=== PATIENT | male | born 1945 | race Caucasian/White ===

== ENCOUNTER → 2016-07-23 | Outpatient (CLI) | payer OTHER, MEDICARE ==
[~2016-07-23] MED LIST: AMOX500T PO; ASPI81TA28 PO; OMEG10007 PO; PRAV80TA2 PO; PRLSR20 PO; PRVC/40 PO
[2016-07-23 12:54] LABS: ALT/SGPT 22 U/L (12-78); AST/SGOT 19 U/L (15-37); BLOOD UREA NITROGEN 21 mg/dl (7-18); BUN/CREATININE RATIO 13.3 (10-20); CALCIUM 9.4 mg/dl (8.5-10.1); CARBON DIOXIDE 26 mmol/L (21-32); CHLORIDE 101 mmol/L (98-107); CHOLESTEROL 212 mg/dl (0-200); GLUCOSE 111 mg/dl (70-99); POTASSIUM 4.1 mmol/L (3.5-5.1); SODIUM 136 mmol/L (136-145); TRIGLYCERIDES 158 mg/dl (0-150); VERY LOW DENSITY LIPOPROT CALC 32 mg/dl
[2016-07-23 12:55] LABS: ESTIMATED AVERAGE GLUCOSE 117 mg/dl; HA1C FLAG Normal (Normal)
[2016-07-23 13:00] LABS: ALKALINE PHOSPHATASE 70 U/L (45-117); CHOLESTEROL/HDL RATIO 3.9; HDL CHOLESTEROL 54 mg/dl
== END | disposition home or self-care (01) ==
LOC: C.LABSPEC 12:22
PROVIDERS: ATTEND Internal Medicine
DX: E78.5 Hyperlipidemia, unspecified (principal); R73.9 Hyperglycemia, unspecified

== ENCOUNTER 2016-08-27 14:58 | Inpatient (IN) | payer OTHER, MEDICARE ==
[~2016-08-27] VITALS: Ht 170.2 cm; Wt 67.7 kg
[~2016-08-27 14:58] MED LIST changes: -AMOX500T PO; -PRLSR20 PO; -PRVC/40 PO
[2016-08-27] MEDS ORDERED: PRVC/40 PO (15:16)
--- NOTE | 2016-08-27 15:17 | EMERGENCY ROOM VISIT NOTE ---
History First contact with patient: 15:06 Chief Complaint: RESPIRATORY PROBLEMS Stated Complaint: PT EVAL FOR ASPIRATION Nursing Triage Summary: pt to the ED via EMS from [facility] where pt had colonscopy today and started to cough so hard afterward that he vomitted and they were concerned for aspiration. pt has no complaints of pain no resp distress History of Present Illness The patient is a 71 year old male who presents to the Emergency Room via private vehicle with complaints of "eval for aspiration". The patient states that he had a colonoscopy this afternoon at 1 PM, performed by Dr. Ahumada. He states that before the colonoscopy he felt that he may have had a fever, but his lungs were clear. Apparently during the procedure he began coughing which persisted. As he was coming out of anesthesia, he vomited when he turned to the left side. He was sent here via ambulance today over concern for potential aspiration. He feels as though he has some indigestion at this time. He states that he remembers vomiting but not coughing. He denies any pain, chest pain, shortness of breath, chills, trouble swallowing. His oxygenation dropped to 88% according to family. Review of Systems A complete 10-point Review of Systems was discussed with the patient, with pertinent positives and negatives listed in the History of Present Illness. All remaining Review of Systems questions can be considered negative unless otherwise specified. Past Medical/Surgical History Medical Problems: (1) ASPIRATION. (2) Hypercholesteremia Family History MATERNAL: Dementia, hypothyroidism. PATERNAL: Myocardial Infarction. Social History Smoking Status: Former Smoker Marital Status: Housing Status: lives with significant other Occupation Status: retired Social History: Patient is . He has smoked for years, and stopped in 2008. There is no alcohol or drug use. Current/Historical Medications Scheduled Aspirin (Aspirin Ec), 81 MG PO DAILY Fish Oil (Elverta-3), 1 CAP PO DAILY Pravastatin Sod (Pravastatin Sodium), 40 MG PO DAILY Allergies Coded Allergies: Adhesives (Unverified Allergy, Unknown, BLISTERS, 08/27/16) TAPE Morphine (Verified Adverse Reaction, Unknown, NAUSEA, 08/27/16) Physical Exam Vital Signs Date Time Temp Pulse Resp B/P Pulse Ox O2 Delivery O2 Flow Rate FiO2 08/27/16 18:08 96 Nasal Cannula 08/27/16 17:58 39.5 114 22 154/76 88 Room Air 08/27/16 17:58 117 25 89 08/27/16 17:57 154/76 08/27/16 17:28 115 26 91 08/27/16 16:58 109 29 92 08/27/16 16:47 112 26 134/77 92 Nasal Cannula 4.0 08/27/16 16:47 134/77 08/27/16 16:28 109 29 93 08/27/16 16:12 113 08/27/16 15:58 112 25 94 08/27/16 15:29 Nasal Cannula 2.0 08/27/16 15:09 37.1 116 20 176/98 94 Room Air Physical Exam VITAL SIGNS - Vital signs and nursing notes were reviewed. GENERAL -71-year-old male appearing his stated age who is in no acute distress. Communicates well with provider and answers questions appropriately. SKIN - Without rashes. No petechial rashes. HEAD - NC/AT. EYES - Sclera anicteric. Palpebral conjunctiva pink and moist with no injection noted. EARS - No deformities of external structures noted on gross examination bilaterally. NOSE - Midline and without cyanosis. No epistaxis or purulent drainage noted. Septum midline without deviation or septal hematoma noted. MOUTH/OROPHARYNX - Without perioral cyanosis. Buccal mucosa pink and moist and without leukoplakia. Tongue midline with equal elevation of palate bilaterally. No tonsillar hypertrophy, erythema, or exudates noted. Fair dentition noted. NECK - Neck with FROM. Supple to palpation. No lymphadenopathy noted. No nuchal rigidity. LUNGS - Chest wall symmetric without accessory muscle use, intercostals retractions, or central cyanosis. Slightly diminished breath sounds in the left base. There is mild rhonchi noted. CARDIAC - RRR with S1/S2. No murmur, rubs, or gallops appreciated. Medical Decision & Procedures ER Provider Diagnostic Interpretation: CHEST 2 VIEWS ROUTINE CLINICAL HISTORY: Recent colonoscopy. Cough, emesis. Evaluate for aspiration. COMPARISON STUDY: Chest radiograph April 30, 2014. FINDINGS: Lungs are hyperinflated. There is no pneumothorax or pleural effusion. Minimal left basilar opacity favors atelectasis or epicardial fat pad. There is no evidence of pulmonary edema. IMPRESSION: 1. Mild left basilar opacity which favors atelectasis or epicardial fat pad. No convincing evidence for pneumonia. 2. Emphysema. Electronically signed by: Stan Barbour M.D. 08/27/2016 4:06 PM Dictated Date/Time: 08/27/2016 4:03 PM Laboratory Results 08/27/16 16:19 Red Blood Count 5.08, Mean Corpuscular Volume 90.6, Mean Corpuscular Hemoglobin 31.3, Mean Corpuscular Hemoglobin Concent 34.6, Mean Platelet Volume 11.4, Neutrophils (%) (Auto) 84.3, Lymphocytes (%) (Auto) 9.1, Monocytes (%) (Auto) 5.9, Eosinophils (%) (Auto) 0.3, Basophils (%) (Auto) 0.1, Neutrophils # (Auto) 11.89, Lymphocytes # (Auto) 1.28, Monocytes # (Auto) 0.83, Eosinophils # (Auto) 0.04, Basophils # (Auto) 0.02 08/27/16 16:19 Test 08/27/16 16:19 08/27/16 16:30 08/27/16 18:10 White Blood Count 14.10 K/uL (4.8-10.8) Red Blood Count 5.08 M/uL (4.7-6.1) Hemoglobin 15.9 g/dL (14.0-18.0) Hematocrit 46.0 % (42-52) Mean Corpuscular Volume 90.6 fL (80-100) Mean Corpuscular Hemoglobin 31.3 pg (25-34) Mean Corpuscular Hemoglobin Concent 34.6 g/dl (32-36) Platelet Count 197 K/uL (130-400) Mean Platelet Volume 11.4 fL (7.4-10.4) Neutrophils (%) (Auto) 84.3 % Lymphocytes (%) (Auto) 9.1 % Monocytes (%) (Auto) 5.9 % Eosinophils (%) (Auto) 0.3 % Basophils (%) (Auto) 0.1 % Neutrophils # (Auto) 11.89 K/uL (1.4-6.5) Lymphocytes # (Auto) 1.28 K/uL (1.2-3.4) Monocytes # (Auto) 0.83 K/uL (0.11-0.59) Eosinophils # (Auto) 0.04 K/uL (0-0.5) Basophils # (Auto) 0.02 K/uL (0-0.2) RDW Standard Deviation 41.9 fL (36.4-46.3) RDW Coefficient of Variation 12.6 % (11.5-14.5) Immature Granulocyte % (Auto) 0.3 % Immature Granulocyte # (Auto) 0.04 K/uL (0.00-0.02) Anion Gap 10.0 mmol/L (3-11) Est Creatinine Clear Calc Drug Dose 39.6 ml/min Estimated GFR () 49.5 Estimated GFR (Non- 42.7 BUN/Creatinine Ratio 11.4 (10-20) Calcium Level 8.2 mg/dl (8.5-10.1) Magnesium Level 2.2 mg/dl (1.8-2.4) Total Bilirubin 0.6 mg/dl (0.2-1) Aspartate Amino Transf (AST/SGOT) 19 U/L (15-37) Alanine Aminotransferase (ALT/SGPT) 23 U/L (12-78) Alkaline Phosphatase 59 U/L (45-117) Troponin I < 0.015 ng/ml (0-0.045) Total Protein 7.1 gm/dl (6.4-8.2) Albumin 3.8 gm/dl (3.4-5.0) Globulin 3.3 gm/dl (2.5-4.0) Albumin/Globulin Ratio 1.2 (0.9-2) Bedside Lactic Acid Venous 2.59 mmol/L (0.90-1.70) Influenza Type A Antigen Neg for Influ A (NEG) Influenza Type B Antigen Neg for Influ B (NEG) Medications Administered Medications (Trade) Dose Ordered Sig/Luba Route Start Time Stop Time Status Last Admin Dose Admin Ondansetron HCl 4 mg 4 mg NOW STAT IV 08/27/16 15:33 08/27/16 15:34 DC 08/27/16 15:55 4 MG Sodium Chloride 1,000 ml @ 999 mls/hr Q1H1M STAT IV 08/27/16 15:33 08/27/16 16:33 DC 08/27/16 15:55 999 MLS/HR Ampicillin Sodium/ Sulbactam Sodium/ Sodium Chloride (Unasyn Inj/Nss 100ml) 104 ml @ 208 mls/hr NOW ONCE IV 08/27/16 17:45 08/27/16 18:14 DC 08/27/16 17:57 208 MLS/HR Lidocaine HCl (Viscous Lidocaine 2% Soln) 10 ml NOW STAT PO 08/27/16 17:36 08/27/16 17:41 DC 08/27/16 17:56 10 ML Al Hydroxide/Mg Hydroxide 30 ml 30 ml NOW STAT PO 08/27/16 17:36 08/27/16 17:41 DC 08/27/16 17:55 30 ML Sodium Chloride (Nss 1000ml) 1,000 ml @ 100 mls/hr Q10H IV 08/27/16 18:15 09/26/16 18:14 08/27/16 19:45 100 MLS/HR Acetaminophen (Tylenol Tab) 500 mg Q4H PRN PO 08/27/16 18:15 09/26/16 18:14 08/27/16 18:43 500 MG Medical Decision Patient was seen and evaluated as above. After obtaining a thorough history and physical examination the above workup was performed. There was concern that the patient may have aspirated but also due to his history of having children for the procedure blood cultures and point care lactic were obtained. CBC reveals leukocytosis at 14.1, no anemia, CBC reveals creatinine elevation at 1.6. Electrolytes are stable. No evidence of liver failure. Calcium is low at 8.2. [id number]-[id number] lactate is 2.59. Chest x-ray results as above. There is concern for aspiration pneumonia. For prophylaxis, I discussed with the pharmacist different choices of antibiotics, the decision was made to use Augmentin at a renally adjusted dose of 500 mg. The case was extensively discussed with my attending, and the decision was made to stop the Augmentin, and begin Unasyn. I do believe this is appropriate. He was also given a GI cocktail or his symptoms. Troponin was negative. An EKG was performed with no acute change from previous. I do believe this time it is appropriate to admit the patient for further evaluation and management, as I do suspect that he has had a significant aspiration. His temperature was reevaluated, and was elevated to 39.5. This elevated concern. I did call the patient's primary care physician, Dr. Barriga who agreed to come and evaluate the patient. He will be admitted for further evaluation and management. In the evaluation and treatment of this patient the following differential diagnoses were entertained: Aspiration pneumonia, AL, PE, sepsis, SIRS, among others. Impression Primary Impression: ASPIRATION. Additional Impression: Febrile Departure Information Dispostion Admitted as an inpatient Condition FAIR Referrals Anselmo Danielson M.D. (PCP) Patient Instructions [facility] Problem Qualifiers
[2016-08-27] MEDS ORDERED: SODIUM CHLORIDE 0.9% 1000ML 1,000 ML IV STA (15:33)
[2016-08-27] MEDS ORDERED: ONDANSETRON INJ 2 MG/ML 2 ML VIAL IV STA (15:33)
--- NOTE | 2016-08-27 15:36 | EMERGENCY ROOM VISIT NOTE ---
ED Visit Note First contact with patient: 15:06 This Patient was discussed with the physician child and youth program assistant, Jese Tripathi PA-C. The pertinent historical and physical exam findings were confirmed. I agree with the studies ordered and with the interpretations of these studies. I agree with the disposition and care plan.
--- NOTE | 2016-08-27 16:07 | DIAGNOSTIC IMAGING REPORT ---
CHEST 2 VIEWS ROUTINE CLINICAL HISTORY: Recent colonoscopy. Cough, emesis. Evaluate for aspiration. COMPARISON STUDY: Chest radiograph April 30, 2014. FINDINGS: Lungs are hyperinflated. There is no pneumothorax or pleural effusion. Minimal left basilar opacity favors atelectasis or epicardial fat pad. There is no evidence of pulmonary edema. IMPRESSION: 1. Mild left basilar opacity which favors atelectasis or epicardial fat pad. No convincing evidence for pneumonia. 2. Emphysema. Electronically signed by: Stan Barbour M.D. 08/27/2016 4:06 PM Dictated Date/Time: 08/27/2016 4:03 PM
[2016-08-27 16:40] LABS: BASO % 0.1 %; BASO ABS # 0.02 K/uL (0-0.2); COMPLETE YES; EOS % 0.3 %; IG% 0.3 %; LYMPH % 9.1 %; LYMPH ABS # 1.28 K/uL (1.2-3.4); MEAN CELL VOLUME 90.6 fL (80-100); MEAN CORPUSCULAR HEMOGLOBIN 31.3 pg (25-34); MEAN CORPUSCULAR HGB CONC 34.6 g/dl (32-36); MEAN PLATELET VOLUME 11.4 fL (7.4-10.4); MONO % 5.9 %; NEUT % 84.3 %; PLATELET COUNT 197 K/uL (130-400); RED BLOOD COUNT 5.08 M/uL (4.7-6.1)
[2016-08-27 16:57] LABS: ALT/SGPT 23 U/L (12-78); BLOOD UREA NITROGEN 18 mg/dl (7-18); BUN/CREATININE RATIO 11.4 (10-20); CALCIUM 8.2 mg/dl (8.5-10.1); CARBON DIOXIDE 26 mmol/L (21-32); CHLORIDE 105 mmol/L (98-107); GLUCOSE 161 mg/dl (70-99); MAGNESIUM 2.2 mg/dl (1.8-2.4); POTASSIUM 3.8 mmol/L (3.5-5.1); SODIUM 141 mmol/L (136-145)
[2016-08-27 17:02] LABS: ALB/GLOB RATIO 1.2 (0.9-2); ALKALINE PHOSPHATASE 59 U/L (45-117); AST/SGOT 19 U/L (15-37)
[2016-08-27] MEDS ORDERED: AMOXICILLIN/CLAVULANATE TAB 500 MG TAB PO STA (17:11)
[2016-08-27] MEDS ORDERED: GI COCKTAIL PO STA (17:19)
[2016-08-27] MEDS ORDERED: AMPICILLIN SOD/SULBACTAM SOD 3 GM VIAL IV STA (17:19)
[2016-08-27] MEDS ORDERED: LIDOCAINE HCL 2% VISC SOLN 20 ML UDC PO STA (17:36)
[2016-08-27] MEDS ORDERED: ALUMINUM/MAGNESIUM SUSP 30 ML UDC PO STA (17:36)
[2016-08-27] MEDS ORDERED: AMPICILLIN/SULBACTAM SOD INJ 1,500 MG in SODIUM CHLORIDE 0.9% 100ML 100 ML IV ONE (17:45)
[2016-08-27] MEDS ORDERED: ONDANSETRON INJ 8 MG in DEXTROSE 5% 50ML 50 ML IV PRN (18:15)
[2016-08-27] MEDS ORDERED: ALUMINUM/MAGNESIUM/SIMETH (MAALOX MAX) 30 ML UDC PO PRN (18:30)
[2016-08-27] MEDS: ACETAMINOPHEN 500 MG TAB PO PRN (18:43)
[2016-08-27] MEDS ORDERED: PANTOprazole INJ 40 MG in SYRINGE 0 ML IV ONE (19:00)
[2016-08-27] MEDS: SODIUM CHLORIDE 0.9% 1000ML 1,000 ML IV SCH (19:45)
[2016-08-27 21:40] VITALS: BP 128/68; PULSE 112; TEMP 37.1; O2SAT 94; Ht 170.2 cm; Wt 67.7 kg
[2016-08-27] MEDS: LEVALBUTEROL 1.25MG/3ML NEB INH SCH (21:40)
[2016-08-27 21:41] VITALS: PULSE 112; O2SAT 92
--- NOTE | 2016-08-27 22:19 | HISTORY & PHYSICAL EXAMINATION ---
DATE OF ADMISSION: 08/27/2016 A 71-year-old male admitted through the Emergency Room with fever and chills and suspected aspiration. HISTORY OF PRESENT ILLNESS: The patient was at the [facility] endoscopy center today and underwent a colonoscopy done by Dr. Ahumada. While he was there, he presented with a severe episode of cough. He also was having reflux. His oxygen saturation dropped significantly to around 88%. There was suspicion that he may have aspirated. He was sent to the Emergency Room by ambulance. He was evaluated. The patient was febrile. His temperature was as high as 39.5 in the Emergency Room. All his laboratory tests were ordered. Cultures were done and he was started on IV Unasyn. I saw the patient in the Emergency Room; he stated that last night, he felt like he was having an upper respiratory tract infection. He was having runny nose. He did not check his temperature. He was having some chills. He had some aching feeling. He had no chest pain, no shortness of breath. Slight cough. No sputum, no hemoptysis. He did not have any abdominal pain, any nausea, vomiting or any diarrhea. After his procedure, when he presented with a severe cough and a possible aspiration, he was also feeling nauseous and was complaining of heartburn. After evaluation in the Emergency Room, the patient was admitted for further treatment. PAST MEDICAL HISTORY: 1. History of colonic polyps. As noted, he had a repeat colonoscopy today and 3 polyps were removed. 2. Acute appendicitis in April of 2014, required surgery by Dr. Ritchie. 3. Left rotator cuff surgery in [address] Estrada. 4. Tonsillectomy at age 7. 5. Hypercholesterolemia. Treated. SOCIAL HISTORY: He is , has 3 children. He smoked over 1 pack per day since his early teens, but he was able to stop in 2008. Denied any alcohol. No drugs. No excessive coffee, tea or soft drinks. 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 FAMILY HISTORY: His mother in her late 90s, had dementia. She had hypothyroidism. His father at age 63, had a myocardial infarction. He has no siblings. Children alive and well. ALLERGIES: HE HAD INTOLERANCE TO MORPHINE at the time he had his appendectomy. CURRENT MEDICATIONS: Include: 1. Pravastatin 40 mg daily. 2. Aspirin 81 mg daily. 3. Fish oil 1000 mg daily. REVIEW OF SYSTEMS: He denied any headache. No dizziness, no lightheadedness. He is complaining of nasal congestion. No earache. He is complaining of sore throat. Mostly irritation from the reflux that he had. No neck pain. Some chest discomfort related to his reflux. He was on oxygen. He was not dyspneic. He was feeling nauseous. No vomiting. No recent problem with his bowel movements. No problem urinating. No pain in his back or extremities. PHYSICAL EXAMINATION: GENERAL: Well developed, in no distress. His recorded weight is 69 kg, height 170.2 cm, BMI 23.8. VITAL SIGNS: On arrival to the Emergency Room, his blood pressure was 170/98, pulse 116, respiration 20, temperature 37.1, oxygen saturation was 94% on 2 liters oxygen by nasal cannula. While he was still in the Emergency Room, he spiked a fever up to 39.5. SKIN: Warm and dry. No rash. HEENT: He usually wears glasses. Has upper dentures. Lower partials. Oxygen cannula in place. NECK: Supple without adenopathy or thyromegaly. No JVD. Normal carotid pulses. Bilateral carotid bruits. He has had ultrasound in the past and there is no evidence of any carotid artery stenosis. CHEST: Normal. HEART: Regular heart sounds. Tachycardia. LUNGS: Minimal rhonchi. ABDOMEN: Soft, nontender, without organomegaly or masses. Surgical scar. BACK: No spinal tenderness. EXTREMITIES: No edema, clubbing, or cyanosis. No joint or muscle tenderness. Absent dorsalis pedis pulses. NEUROLOGIC: He is alert and oriented without evidence of any deficit. ADMISSION LABORATORY TESTS: WBC count 14,100; hemoglobin 15.9, hematocrit 46%, platelet count 197,000. Sodium 141, potassium 3.8, chloride 105, CO2 26, BUN 18, creatinine 1.6, glucose 161, calcium 8.2, magnesium 2.2, total bilirubin 0.6, AST 19, ALT 23, total protein 7.9, alkaline phosphatase 59, albumin 3.8. Troponin I less than 0.015. His electrocardiogram showed a sinus tachycardia. No acute changes. His chest x-ray showed evidence of emphysema. He had a mild left basilar opacity, which is thought to favor atelectasis or an epicardial fat pad. There was no convincing evidence for pneumonia. ASSESSMENT: 1. Suspected aspiration. 2. Fever and chills. 3. Gastroesophageal reflux. 4. Colonic polyps. 5. Hypercholesterolemia. 6. History of smoking. He stopped in 2008. PLAN: The patient was admitted to medical bed. Resuscitation level 1. All his laboratory tests were ordered. Cultures were already done. He was checked for influenza. Influenza A and B were negative. He was started on IV Unasyn. Given high flow treatment with Xopenex. Continued on oxygen. Also given Protonix. We will repeat his chest x-ray in the morning. We will continue his medications. We will increase his activity as tolerated. We will wait for the cultures and decide on any change, as far as his antibiotics treatment.
[2016-08-27] MEDS: AMPICILLIN/SULBACTAM SOD INJ 1,500 MG in SODIUM CHLORIDE 0.9% 100ML 100 ML IV SCH (23:39)
[2016-08-28] VITALS (8 sets, daily range): BP systolic 99–130; BP diastolic 53–68; PULSE 97–113; TEMP 36.8–38.2; O2SAT 90–98
[2016-08-28] MEDS: LEVALBUTEROL 1.25MG/3ML NEB INH SCH ×4 (02:34→19:30)
[2016-08-28] MEDS ORDERED: COUGH DROP (SUGAR FREE) LOZ 24 LOZ/1 BOX ONE (03:01)
[2016-08-28] MEDS: AMPICILLIN/SULBACTAM SOD INJ 1,500 MG in SODIUM CHLORIDE 0.9% 100ML 100 ML IV SCH ×3 (05:24→18:10)
[2016-08-28] MEDS: SODIUM CHLORIDE 0.9% 1000ML 1,000 ML IV SCH ×2 (05:24→14:25)
[2016-08-28 07:04] LABS: BASO % 0.1 %; BASO ABS # 0.01 K/uL (0-0.2); COMPLETE YES; HEMATOCRIT 39.5 % (42-52); IG% 0.3 %; LYMPH % 10.8 %; MEAN CELL VOLUME 91.9 fL (80-100); MEAN CORPUSCULAR HEMOGLOBIN 31.2 pg (25-34); MEAN CORPUSCULAR HGB CONC 33.9 g/dl (32-36); MEAN PLATELET VOLUME 11.3 fL (7.4-10.4); MONO % 7.9 %; NEUT % 80.9 %; PLATELET COUNT 156 K/uL (130-400); WHITE BLOOD COUNT 14.86 K/uL (4.8-10.8)
[2016-08-28 07:18] LABS: BUN/CREATININE RATIO 8.6 (10-20); CALCIUM 7.7 mg/dl (8.5-10.1); CREATININE 1.5 mg/dl (0.60-1.40)
[2016-08-28] MEDS: OMEGA-3 (PURIFIED FISH OIL) 1 GM CAP PO SCH (08:17)
[2016-08-28] MEDS: ASPIRIN 81 MG ECTAB PO SCH (08:17)
[2016-08-28] MEDS: PRAVASTATIN SOD 40 MG TAB PO SCH (08:18)
[2016-08-28] MEDS ORDERED: PANTOprazole INJ 40 MG in SYRINGE 0 ML IV SCH (11:00)
--- NOTE | 2016-08-28 13:43 | DIAGNOSTIC IMAGING REPORT ---
CHEST 2 VIEWS ROUTINE HISTORY: ASPIRATION COMPARISON: Chest 08/27/2016. FINDINGS: There is a new hazy left lower lobe airspace opacity consistent with a pneumonia. No pleural effusions. No pneumothorax. The heart is normal in size. The right lung is clear. IMPRESSION: A new hazy left lower lobe airspace opacity consistent with a pneumonia Electronically signed by: Lucio Pittman M.D. 08/28/2016 1:41 PM Dictated Date/Time: 08/28/2016 1:31 PM
[2016-08-28] MEDS: ACETAMINOPHEN 500 MG TAB PO PRN (18:11)
[2016-08-29] VITALS (9 sets, daily range): BP systolic 120–145; BP diastolic 68–77; PULSE 98–111; TEMP 37–38.7; O2SAT 92–98
[2016-08-29] MEDS: AMPICILLIN/SULBACTAM SOD INJ 1,500 MG in SODIUM CHLORIDE 0.9% 100ML 100 ML IV SCH ×5 (00:13→23:33)
[2016-08-29] MEDS: SODIUM CHLORIDE 0.9% 1000ML 1,000 ML IV SCH ×2 (00:13→11:30)
[2016-08-29] MEDS: ACETAMINOPHEN 500 MG TAB PO PRN (00:14)
--- NOTE | 2016-08-29 00:27 | PROGRESS NOTE ---
DATE: 08/28/2016 SUBJECTIVE: A 71-year-old male admitted with fever and chills and suspected aspiration. It occurred during an endoscopy procedure, he was having a colonoscopy done. The patient was admitted. His cultures were done. He was started on IV Unasyn. He had fever up to 38.2 early this morning but none since then. He is resting comfortably. Denied any chills. Denied any chest pain. No shortness of breath. He does have a cough. Not producing any sputum yet. No nausea, no vomiting. His appetite has decreased. No pain in his back or extremities. PHYSICAL EXAMINATION: GENERAL: Well developed, in no distress. VITAL SIGNS: Blood pressure 126/58, pulse 110, respirations 16, temperature 38.2, oxygen saturation 98% on room air. SKIN: Warm and dry. No rash. HEENT: No evidence of any mucosal abnormality. NECK: No JVD, no adenopathy. HEART: Regular heart sounds. LUNGS: Minimal rhonchi left base. ABDOMEN: Soft, nontender. EXTREMITIES: No edema, clubbing, or cyanosis. LABORATORY TESTS: WBC count 14,860, hemoglobin 13.4, hematocrit 39.5, platelet count 156,000. Sodium 142, potassium 4.0, chloride 110, CO2 of 25, BUN 13, creatinine 1.5, glucose 163, calcium 7.7. Chest x-ray was done today, PA and lateral, and did show evidence of left lower lobe infiltrate consistent with pneumonia. ASSESSMENT: 1. Left lower lobe pneumonia. 2. Suspected aspiration. 3. Mild renal insufficiency. PLAN: 1. Continuing IV fluids. 2. Continue IV Unasyn. 3. He is getting out of bed and ambulating. 4. Continue high flow treatments. 5. Cultures are still pending.
[2016-08-29] MEDS: LEVALBUTEROL 1.25MG/3ML NEB INH SCH ×4 (02:35→19:22)
[2016-08-29 06:56] LABS: BASO % 0.1 %; BASO ABS # 0.01 K/uL (0-0.2); COMPLETE YES; EOS % 0.6 %; HEMATOCRIT 34.7 % (42-52); IG% 0.2 %; LYMPH % 12.9 %; LYMPH ABS # 1.14 K/uL (1.2-3.4); MEAN CELL VOLUME 91.1 fL (80-100); MEAN PLATELET VOLUME 11.4 fL (7.4-10.4); MONO % 10.2 %; PLATELET COUNT 116 K/uL (130-400); RED BLOOD COUNT 3.81 M/uL (4.7-6.1); WHITE BLOOD COUNT 8.85 K/uL (4.8-10.8)
[2016-08-29 07:01] LABS: BUN/CREATININE RATIO 7.2 (10-20); CALCIUM 7.7 mg/dl (8.5-10.1); CREATININE 1.2 mg/dl (0.60-1.40); POTASSIUM 3.6 mmol/L (3.5-5.1)
[2016-08-29] MEDS: PANTOprazole SOD 40 MG TAB PO SCH (08:24)
[2016-08-29] MEDS: OMEGA-3 (PURIFIED FISH OIL) 1 GM CAP PO SCH (08:24)
[2016-08-29] MEDS: ASPIRIN 81 MG ECTAB PO SCH (08:24)
[2016-08-29] MEDS: PRAVASTATIN SOD 40 MG TAB PO SCH (08:24)
--- NOTE | 2016-08-29 12:05 | Clinical Documentation Query ---
CLINICAL DOCUMENTATION QUERY Dr. KRISTAN PAREDES, In your clinical opinion is this patient being managed for: ( x ) mild acute kidney failure/acute kidney injury ( ) Other explanation of clinical findings (Please Explain) ( ) Unable to determine (Please Define) ( ) Need to Discuss ( ) Not Agree The medical record reflects the following clinical findings, treatment, and risk factors. Clinical Indicators: 71 yo male presented with fever and diagnosed with pneumonia. Initial Cr 1.6 which has trended down to 1.20. Progress note indicates pt with mild renal insufficiency. Treatment: IV fluids, PRP monitoring Risk Factors: pneumonia Acute Kidney Injury is defined as any of the following: o Increase in SCr by (>/=) 0.3 mg/dl within 48 hours; or o Increase in SCr to (>/=)1.5 times baseline, which is known or presumed to have occurred within the prior 7 days; or o Urine volume <0.5 ml/kg/h for 6 hours. Please clarify and document your clinical opinion in the progress notes and discharge summary. Terms such as "probable", "suspected", "likely", "questionable", "possible", or "still to be ruled out" are acceptable. IF IN AGREEMENT, YOU MUST DOCUMENT ABOVE DIAGNOSTIC STATEMENT IN DAILY PROGRESS NOTES AND DISCHARGE SUMMARY. This document is not part of the patient's record. Thank You, Bharati Leach RN [phone]
--- NOTE | 2016-08-29 17:41 | PROGRESS NOTE ---
DATE: 08/29/2016 SUBJECTIVE: A 71-year-old male with: 1. Left lower lobe pneumonia. 2. History of smoking. 3. Emphysema. 4. Hypercholesterolemia. 5. Chronic polyps. Actually, he developed severe cough and he may have aspirated at the time that he had his colonoscopy just before his admission. The patient was admitted. Cultures were done. He was started on IV Unasyn. Given high flow treatments. He was also complaining of heartburn and reflux symptomatology and he was started on Protonix. Overall, his condition has improved. He still had a fever at midnight last night up to 38.7. He denied any chills. No headache. No dizziness. No lightheadedness. No chest pain. No shortness of breath. He is ambulating. He is maintaining good oxygen saturation on room air. No abdominal pain, no nausea, and no vomiting. Has not had a bowel movement. No urination problems. No pain in his back or extremities. He does have an intermittent cough. Mostly after his high flow treatments, but he has not produced any significant sputum. PHYSICAL EXAMINATION: GENERAL: Well developed, in no acute distress. VITAL SIGNS: Blood pressure 120/71, pulse 103, respirations 20, temperature 37, and oxygen saturation 92% on room air. SKIN: Warm and dry. No rash. HEENT: No evidence of any mucosal abnormality. NECK: No JVD. No adenopathy. HEART: Regular heart sounds. No evident murmur, rub, or gallop. LUNGS: Minimal left-sided rhonchi. No wheezing. ABDOMEN: Soft and nontender. BACK: No spinal tenderness. EXTREMITIES: No edema, clubbing, or cyanosis. TODAY'S LABORATORY TESTS: WBC count 8850, hemoglobin 11.8, hematocrit 34.6, and platelet count 116,000. Sodium 147, potassium 3.6, chloride 114, CO2 of 29, BUN 9, creatinine 1.2, glucose 138, and calcium 7.7. ASSESSMENT: 1. Left lower lobe pneumonia, suspected to be related to aspiration during his colonoscopy. 2. Emphysema. 3. Hypercholesterolemia. 4. Elevated creatinine on admission to 1.6, but now it has normalized. PLAN: 1. Continuing his IV antibiotics. 2. Discontinue his IV fluid. 3. Continuing all his other medications. He is now on oral Protonix. 4. Encouraged to continue with ambulation. 5. We will continue monitoring his temperature. 6. I anticipate that he will go home after his acute hospitalization and we will repeat his chest x-ray in about 2 weeks down the line.
[2016-08-30] VITALS (7 sets, daily range): BP systolic 140–153; BP diastolic 74–80; PULSE 88–97; TEMP 36.3–37.2; O2SAT 91–100
[2016-08-30] MEDS: LEVALBUTEROL 1.25MG/3ML NEB INH SCH ×3 (01:55→15:00)
[2016-08-30] MEDS: AMPICILLIN/SULBACTAM SOD INJ 1,500 MG in SODIUM CHLORIDE 0.9% 100ML 100 ML IV SCH ×2 (06:14→12:27)
[2016-08-30 06:15] LABS: BASO % 0.3 %; BASO ABS # 0.02 K/uL (0-0.2); COMPLETE YES; EOS % 4.3 %; HEMATOCRIT 35.1 % (42-52); IG% 0.3 %; LYMPH % 19.1 %; LYMPH ABS # 1.46 K/uL (1.2-3.4); MEAN CELL VOLUME 90.5 fL (80-100); MEAN CORPUSCULAR HEMOGLOBIN 30.7 pg (25-34); MEAN CORPUSCULAR HGB CONC 33.9 g/dl (32-36); MEAN PLATELET VOLUME 11.4 fL (7.4-10.4); MONO % 8.7 %; NEUT % 67.3 %; PLATELET COUNT 127 K/uL (130-400); RED BLOOD COUNT 3.88 M/uL (4.7-6.1); WHITE BLOOD COUNT 7.66 K/uL (4.8-10.8)
[2016-08-30 06:44] LABS: BUN/CREATININE RATIO 7.1 (10-20); CALCIUM 7.8 mg/dl (8.5-10.1); CREATININE 1.1 mg/dl (0.60-1.40); POTASSIUM 3.8 mmol/L (3.5-5.1)
[2016-08-30] MEDS: PRAVASTATIN SOD 40 MG TAB PO SCH (08:48)
[2016-08-30] MEDS: OMEGA-3 (PURIFIED FISH OIL) 1 GM CAP PO SCH (08:48)
[2016-08-30] MEDS: PANTOprazole SOD 40 MG TAB PO SCH (08:48)
[2016-08-30] MEDS: ASPIRIN 81 MG ECTAB PO SCH (08:48)
--- NOTE | 2016-08-30 09:53 | DIAGNOSTIC IMAGING REPORT ---
CHEST 2 VIEWS ROUTINE CLINICAL HISTORY: LLL pneumonia pneumonia COMPARISON STUDY: 08/28/2016 FINDINGS: Considerable improvement compared to the prior exam. Left basilar infiltrate is shown near complete resolution. Very slight blunting lateral costophrenic angle. Lungs otherwise appear clear. IMPRESSION: Improved exam with near complete resolution of the left basilar infiltrate. Slight blunting left lateral and posterior costophrenic angle Electronically signed by: Darvin Wilson M.D. 08/30/2016 9:51 AM Dictated Date/Time: 08/30/2016 9:50 AM
[2016-08-30] MEDS ORDERED: AMOX500T PO (17:23)
[2016-08-30] MEDS ORDERED: PRLSR20 PO (17:23)
--- NOTE | 2016-08-30 17:25 | Discharge Instructions ---
Discharge Instructions Date of Service Aug 30, 2016. Admission Reason for Admission: Pt Eval For Aspiration Discharge Discharge Diagnosis / Problem: LEFT LOWER LOBE PNEUMONIA Discharge Goals Goal(s): Decrease discomfort, Improve function, Increase independence, Improve disease control Activity Recommendations Activity Limitations: resume your previous activity . Instructions / Follow-Up Instructions / Follow-Up DR HUANG IN ONE WEEK Current Hospital Diet Patient's current hospital diet: Regular Diet Discharge Diet Recommended Diet: Low Fat Diet Pending Studies Studies pending at discharge: no Laboratory Results Hemoglobin A1c Test 07/23/16 09:30 Range/Units Estimated Average Glucose 117 mg/dl Hemoglobin A1c 5.7 H 4.5-5.6 % Lipid Panel Test 07/23/16 09:30 Range/Units Triglycerides Level 158 H 0-150 mg/dl Cholesterol Level 212 H 0-200 mg/dl HDL Cholesterol 54 mg/dl LDL Cholesterol Direct 135 mg/dl Cholesterol/HDL Ratio 3.9 LDL Cholesterol, Calculated mg/dl Medical Emergencies . Who to Call and When: Medical Emergencies: If at any time you feel your situation is an emergency, please call 911 immediately. . Non-Emergent Contact Non-Emergency issues call your: Primary Care Provider . . "Provider Documentation" section prepared by Anselmo Huang. VTE Core Measure Inpt VTE Proph given/why not?: Treatment not indicated
--- NOTE | 2016-08-30 20:33 | PROGRESS NOTE ---
DATE: 08/30/2016 A 71-year-old male, admitted with left lower lobe pneumonia. Cultures were done. He was started on IV Unasyn. It is suspected that the episode was precipitated by aspiration during his colonoscopy. The patient was admitted, started on IV Unasyn and blood cultures were done. His condition improved. He had only minimal cough. Did not produce any purulent sputum. He became afebrile. The patient has been tolerating his diet. He has been ambulating. He denied any headache or dizziness. No chest pain, no shortness of breath. No abdominal pain, no nausea or vomiting. No pain in his back or extremities. PHYSICAL EXAMINATION: GENERAL: Well-developed, in no distress. VITAL SIGNS: Blood pressure 150/80, pulse 94, respirations 20, temperature 37.2 and oxygen saturation 93% on room air. SKIN: Warm and dry. No rash. HEENT: No mucosal abnormalities. NECK: No JVD. No adenopathy. HEART: Regular heart sounds. LUNGS: Very minimal rhonchi. No wheezing. ABDOMEN: Soft and nontender. BACK: No spinal tenderness. EXTREMITIES: No edema, clubbing or cyanosis. TODAY'S LABORATORY TESTS: WBC count 7660, hemoglobin 11.9, hematocrit 35.1 and platelet count 127,000. Sodium 144, potassium 3.8, chloride 112, CO2 26, BUN 8, creatinine 1.1, glucose 118 and calcium 7.8. Chest x-ray showed almost complete resolution of the left lower lobe infiltrate. ASSESSMENT: 1. Left lower lobe pneumonia. 2. Suspected aspiration. 3. Hyperlipidemia. 4. Dyspepsia. PLAN: 1. Overall, he is doing quite well. I kept him in the hospital during the day and I saw him again this evening. 2. He was discharged home on Augmentin 500 mg three times a day for 7 days. 3. He was also switched to omeprazole 20 mg daily for his reflux and dyspepsia. 4. He will continue all his other medications unchanged. 5. I will see him in the office in one week.
--- NOTE | 2016-09-01 17:37 | DISCHARGE SUMMARY ---
DISCHARGE DIAGNOSES: 1. Left lower lobe pneumonia. 2. Suspected aspiration. 3. Hypercholesterolemia. 4. Gastroesophageal reflux. DISCHARGE MEDICATIONS: 1. Augmentin 500 mg 3 times a day for 7 days. 2. Omeprazole 20 mg daily. 3. Aspirin 81 mg daily. 4. Fish oil omega-3 one capsule daily. 5. Pravastatin 40 mg daily. HISTORY: Mr. De La Torre is a 71-year-old male admitted through the Emergency Room with suspected aspiration. He had fever and chills. The patient was at the [facility] endoscopy center and underwent a colonoscopy by Dr. Ahumada. The patient had an episode of severe cough. He was having reflux. His oxygen saturation dropped to 88%. There was a suspicion that he may have aspirated. He was sent to the Emergency Room by ambulance. He was evaluated. He was febrile. His temperature was up to 39.5. All his laboratory tests were ordered. Cultures were done. He was started on IV Unasyn. I saw the patient in the Emergency Room. He stated the night prior to his admission, he felt that he was having upper respiratory tract infection, symptomatology was having a runny nose. He did not check his temperature. He was having some chills. He was feeling achy. He had no chest pain, no shortness of breath. A slight cough. No sputum, no hemoptysis. After the procedure when he presented with a severe cough and possible aspiration, he felt nauseous and was complaining of heartburn. The patient was admitted for further evaluation and treatment. Past medical history, social history and family history were all as noted. ALLERGIES: INTOLERANCE TO MORPHINE WHICH HE RECEIVED AT THAT TIME HE HAD HIS APPENDECTOMY. MEDICATIONS ON ADMISSION: All as noted on his history and physical. PHYSICAL EXAMINATION AND ADMISSION LABORATORY TESTS: All as noted. HOSPITAL COURSE: The patient was admitted to medical bed. Resuscitation level 1. All his laboratory tests were ordered. Cultures were done. He was also checked for influenza A and B and that was negative. He was started on IV Unasyn. Also given high flow treatments with Xopenex. Given Protonix for his heartburn and reflux and continued on oxygen. The following day, he had a chest x-ray, PA and lateral. There was evidence of a left lower lobe infiltrate consistent with pneumonia. The patient was continued on IV Unasyn. He did continue to have fever for the first 48 hours, but then his temperature returned to normal. Also, his WBC count was elevated to 14,100 on admission on 08/27/2016 and on 08/29/2016 it was back to normal. As noted, his condition improved. He was having a slight cough, but no sputum, no hemoptysis. Did not produce any purulent secretions. His temperature has subsided. His appetite started to improve. His heartburn was under control. He was ambulating without any problem. Tolerating his diet. Symptoms subsided. A repeat chest x-ray was done on 08/30/2016. It showed improved exam with near complete resolution of the left basilar infiltrate. There was slight blunting of the left lateral and posterior costophrenic angle. The patient was discharged home. Medications as noted above. He was to see me in the office 1 week after his discharge.
--- NOTE | 2016-09-02 11:42 | EDITING REQUIRED CODING QUERY ---
CODING QUERY To promote full compliance with coding requirements relating to patient care, provider participation is requested in all cases of production support analyst uncertainty. Please assist us with the question(s) below: Coding Question(s): Patient admitted post colonoscopy . Progress notes patient likely aspirated during the colonoscopy. Patient had episode of severe coughing prompted by reflux. Please document, if known or suspected, the etiology of the aspiration. Thanks for your help! Angel Garcia [employer]PUT[employer] ENG[employer] [facility] Physician's Response(s): I am not sure if it was aspiration. Patient started to have symptoms of congestion and cough the night prior to his colonoscopy. Aspiration could be a factor. Principal Diagnosis: "_that condition established after study, to be chiefly responsible for occasioning the admission of the patient to the hospital for care." Co-Existing Principal Diagnosis: "_when two or more diagnoses equally meet the criteria for principal diagnosis as determined by the circumstances of admission, diagnostic work up, and/or therapy provided, and the Alphabetic Index, Tabular List, or another coding guideline does not provide sequencing direction, any one of the diagnoses may be sequenced first." "When the physician has documented what appears to be a current diagnosis in the body of the record, but has not included the diagnosis in the final diagnostic statement, the physician should be asked whether the diagnosis should be added." (Source [facility] 2 QTR90. p3-4)
== END 2016-08-30 18:00 | disposition home or self-care (01) | DRG 179 ==
LOC: ENRESERVDT → ENRESERVTM → EDBD 14:58 → C.EDB 14:59 → C.MS2W 18:17
PROVIDERS: ADMIT Internal Medicine; ATTEND Internal Medicine
DX: J69.0 Pneumonitis due to inhalation of food and vomit (principal); E78.00 Pure hypercholesterolemia, unspecified; Z87.891 Personal history of nicotine dependence; N28.9 Disorder of kidney and ureter, unspecified; J43.9 Emphysema, unspecified; Z86.010 Personal history of colon polyps; K63.5 Polyp of colon; Y83.8 Other surgical procedures as the cause of abnormal reaction of the patient, or of later complication, without mention of misadventure at the time of the procedure; Y92.530 Ambulatory surgery center as the place of occurrence of the external cause; Z98.890 Other specified postprocedural states

== ENCOUNTER → 2016-09-19 | Outpatient (CLI) | payer OTHER, MEDICARE ==
[~2016-09-19] MED LIST changes: -PRAV80TA2 PO; +PRLSR20 PO; +PRVC/40 PO
--- NOTE | 2016-09-19 09:46 | DIAGNOSTIC IMAGING REPORT ---
CHEST 2 VIEWS ROUTINE HISTORY: Left lower lobe pneumonia. Follow-up. COMPARISON: Chest 08/30/2016. FINDINGS: The heart is normal in size. No pleural effusions. No pneumothorax. The lungs are clear. IMPRESSION: No acute process. Electronically signed by: Lucio Pittman M.D. 09/19/2016 9:45 AM Dictated Date/Time: 09/19/2016 9:44 AM
== END | disposition home or self-care (01) ==
LOC: C.RAD 09:16
PROVIDERS: ATTEND Internal Medicine
DX: J18.9 Pneumonia, unspecified organism (principal)

== ENCOUNTER → 2017-07-22 | Outpatient (CLI) | payer OTHER, MEDICARE ==
[~2017-07-22] MED LIST changes: -PRLSR20 PO
[2017-07-22 13:31] LABS: CHOLESTEROL 190 mg/dl (0-200); LDL CHOLESTEROL (DIRECT) 125 mg/dl
[2017-07-22 13:36] LABS: HEMOGLOBIN A1C 6.2 % (4.5-5.6)
== END | disposition home or self-care (01) ==
LOC: C.LABSPEC 12:16
PROVIDERS: ATTEND Internal Medicine
DX: R73.9 Hyperglycemia, unspecified (principal); E78.5 Hyperlipidemia, unspecified